=== PATIENT | female | born 1935 | race Asian ===

== ENCOUNTER 2016-11-29 06:19 | Inpatient (IN) | END 2016-12-08 17:59 | DRG 551 | DX: S32.048A Other fracture of fourth lumbar vertebra, initial encounter for closed fracture (principal); E43 Unspecified severe protein-calorie malnutrition; J96.01 Acute respiratory failure with hypoxia; N17.9 Acute kidney failure, unspecified; E87.0 Hyperosmolality and hypernatremia; I27.20 Pulmonary hypertension, unspecified; I48.0 Paroxysmal atrial fibrillation; E83.39 Other disorders of phosphorus metabolism; N39.0 Urinary tract infection, site not specified; Z68.1 Body mass index [BMI] 19.9 or less, adult; J98.11 Atelectasis; B96.4 Proteus (mirabilis) (morganii) as the cause of diseases classified elsewhere; D50.9 Iron deficiency anemia, unspecified; I12.9 Hypertensive chronic kidney disease with stage 1 through stage 4 chronic kidney disease, or unspecified chronic kidney disease; R53.81 Other malaise; N18.3 Chronic kidney disease, stage 3 (moderate); M48.061 Spinal stenosis, lumbar region without neurogenic claudication; M85.88 Other specified disorders of bone density and structure, other site; E78.5 Hyperlipidemia, unspecified; D63.1 Anemia in chronic kidney disease; R13.10 Dysphagia, unspecified; W01.0XXA Fall on same level from slipping, tripping and stumbling without subsequent striking against object, initial encounter; Y92.003 Bedroom of unspecified non-institutional (private) residence as the place of occurrence of the external cause; Z96.642 Presence of left artificial hip joint; Z87.891 Personal history of nicotine dependence; Z86.73 Personal history of transient ischemic attack (TIA), and cerebral infarction without residual deficits; Z66 Do not resuscitate ==